=== PATIENT | male | born 1990 | race African-American/Black ===

== ENCOUNTER 2019-07-23 21:21 | Emergency (ER) | payer SELFPAY ==
[~2019-07-23] VITALS: Ht 175.3 cm; Wt 81.6 kg
[2019-07-23 21:45] VITALS: BP 160/109
--- NOTE | 2019-07-23 21:45 | NUR ---
ER Nurse Note: Pt walked in c/o mid abd pain with sudden onset. Pt states 8/10 pain, aching. Pt denies n/v. Bowel sounds heard in all quadrants. Pt denies trauma, ingesting abnormal food/drinks. Pt Urine provided. Will continue to montior.
--- NOTE | 2019-07-23 22:27 | Emergency Room Report ---
History of Present Illness General Chief Complaint: Abdominal Pain Source: Patient Present Illness HPI Patient is a 29-year-old male presents after increased epigastric pain. He reports having vague pain to the epigastric area which associated with increased discomfort. Patient patient states this is worse with supine position. He denies any recent alcohol intake. He denies being a smoker. Not been vomiting. He denies any nausea. He denies any diarrhea. He denies prior history of similar symptoms in the past. Allergies: Coded Allergies: No Known Allergies (Unverified , 07/23/19) Patient History Reviewed Nursing Documentation: PMH: Agreed; PSxH: Agreed Nursing Documentation-PM Past Medical History: No Stated History Review of Systems All Other Systems: negative except mentioned in HPI Physical Exam Vital Signs Date Time Temp Pulse Resp B/P (MAP) Pulse Ox O2 Delivery O2 Flow Rate FiO2 07/23/19 21:37 98.4 88 18 160/109 (126) 98 Room Air Sp02 EP Interpretation: reviewed, normal General Appearance: normal inspection, well appearing, no apparent distress, alert, GCS 15 Head: atraumatic ENT: normal ENT inspection, hearing grossly normal, normal voice Neck: normal inspection, full range of motion, supple, no bony tend Respiratory: normal inspection, lungs clear, normal breath sounds, no respiratory distress, no retraction, no wheezing Cardiovascular #1: regular rate, rhythm, no edema Gastrointestinal: normal inspection, normal bowel sounds, non tender, soft, no guarding, no hernia Genitourinary: no CVA tenderness Musculoskeletal: normal inspection, back normal, normal range of motion Neurologic: normal inspection, alert, oriented x3, responsive, fur repairer III-XII nml as tested, speech normal Psychiatric: normal inspection, judgement/insight normal, mood/affect normal Medical Decision Making Diagnostic Impression: Primary Impression: Nonspecific abdominal pain ER Course Patient presented for abdominal pain. Differential diagnoses included ischemic bowel, appendicitis, perforated viscus, abdominal aortic aneurysm, inferior myocardial infarction, viral gastroenteritis among others. Because of complexity of patient's case laboratory tests and imaging studies were ordered. Patient presented for epigastric pain. He was noted to have minimal if any tenderness to his abdomen. Abdominal ultrasound read by radiology showed no evidence of acute gallbladder or renal pathology. Patient does not appear to have any evidence of systemic toxicity and has a benign exam. Patient was given medications for symptomatic management of abdominal pain. He was advised to follow-up with his primary care physician for recheck. Patient was to return if he had worsening pain persistent vomiting or other concerns. Patient appears to be stable for outpatient evaluation. Labs Test 07/23/19 21:45 07/23/19 22:45 Urine Color Pale yellow Urine Appearance Clear Urine pH 7 (4.5-8.0) Urine Specific [place] 1.015 (1.005-1.035) Urine Protein Negative (NEGATIVE) Urine Glucose (UA) Negative (NEGATIVE) Urine Ketones Negative (NEGATIVE) Urine Blood Negative (NEGATIVE) Urine Nitrite Negative (NEGATIVE) Urine Bilirubin Negative (NEGATIVE) Urine Urobilinogen Normal MG/DL (0.0-1.0) Urine Leukocyte Esterase Negative (NEGATIVE) White Blood Count 7.1 K/UL (4.8-10.8) Red Blood Count 5.11 M/UL (4.70-6.10) Hemoglobin 15.2 G/DL (14.2-18.0) Hematocrit 42.8 % (42.0-52.0) Mean Corpuscular Volume 84 FL (80-99) Mean Corpuscular Hemoglobin 29.8 PG (27.0-31.0) Mean Corpuscular Hemoglobin Concent 35.6 G/DL (32.0-36.0) Red Cell Distribution Width 11.2 % (11.6-14.8) Platelet Count 204 K/UL (150-450) Mean Platelet Volume 5.7 FL (6.5-10.1) Neutrophils (%) (Auto) 66.4 % (45.0-75.0) Lymphocytes (%) (Auto) 24.1 % (20.0-45.0) Monocytes (%) (Auto) 7.2 % (1.0-10.0) Eosinophils (%) (Auto) 0.3 % (0.0-3.0) Basophils (%) (Auto) 2.0 % (0.0-2.0) Sodium Level 142 MMOL/L (136-145) Potassium Level 4.0 MMOL/L (3.5-5.1) Chloride Level 106 MMOL/L (98-107) Carbon Dioxide Level 27 MMOL/L (21-32) Anion Gap 9 mmol/L (5-15) Blood Urea Nitrogen 8 mg/dL (7-18) Creatinine 1.2 MG/DL (0.55-1.30) Estimat Glomerular Filtration Rate > 60 mL/min (>60) Glucose Level 94 MG/DL (74-106) Calcium Level 9.3 MG/DL (8.5-10.1) Total Bilirubin 0.4 MG/DL (0.2-1.0) Aspartate Amino Transf (AST/SGOT) 14 U/L (15-37) Alanine Aminotransferase (ALT/SGPT) 26 U/L (12-78) Alkaline Phosphatase 76 U/L (46-116) Total Protein 7.8 G/DL (6.4-8.2) Albumin 3.7 G/DL (3.4-5.0) Globulin 4.1 g/dL Albumin/Globulin Ratio 0.9 (1.0-2.7) Lipase 76 U/L (73-393) Last Vital Signs Date Time Temp Pulse Resp B/P (MAP) Pulse Ox O2 Delivery O2 Flow Rate FiO2 07/23/19 21:45 98.4 76 18 160/109 98 Room Air Status: improved Disposition: HOME, SELF-CARE Condition: Stable Scripts Dicyclomine Hcl* (DICYCLOMINE HCL*) 10 Mg Capsule 10 MG ORAL QID, #20 CAP Prov: Noam Rutherford MD 07/23/19 Omeprazole (OMEPRAZOLE) 20 Mg Capsule. 20 MG ORAL DAILY, #30 CAP Prov: Noam Rutherford MD 07/23/19 Noam Rutherford MD Jul 23, 2019 22:27
[2019-07-23] MEDS ORDERED: Dicyclomine HCl 10mg/5ml oral soln ORAL ONE (22:30)
--- NOTE | 2019-07-23 22:45 | NUR ---
ED Nurse Note: Received pt from Jaymie REEDER. Pt vss, jamee x4, no acute distress.
[2019-07-23 22:47] LABS: APPEARANCE,URINE CLEAR; BILIRUBIN, URINE NEGATIVE (NEGATIVE); COLOR,URINE PALE YELLOW; GLUCOSE, URINE (UA) NEGATIVE (NEGATIVE); KETONES,URINE NEGATIVE (NEGATIVE); LEUKOCYTE ESTERASE ,URINE NEGATIVE (NEGATIVE); NITRITE,URINE NEGATIVE (NEGATIVE); PH,URINE 7 (4.5-8.0); PROTEIN,URINE NEGATIVE (NEGATIVE); UROBILINOGEN,URINE NORMAL MG/DL (0.0-1.0)
[2019-07-23 22:53] LABS: EOSINOPHILS % (AUTO) 0.3 % (0.0-3.0); HEMATOCRIT 42.8 % (42.0-52.0); HEMOGLOBIN 15.2 G/DL (14.2-18.0); LYMPHOCYTES % (AUTO) 24.1 % (20.0-45.0); MEAN CORPUSCULAR VOLUME 84 FL (80-99); MONOCYTES % (AUTO) 7.2 % (1.0-10.0); NEUTROPHILS % (AUTO) 66.4 % (45.0-75.0); PLATELET COUNT 204 K/UL (150-450); RED BLOOD COUNT 5.11 M/UL (4.70-6.10); RED CELL DISTRIBUTION WIDTH 11.2 % (11.6-14.8); WHITE BLOOD COUNT 7.1 K/UL (4.8-10.8)
--- NOTE | 2019-07-23 22:53 | NUR ---
ER Nurse Note: Report given to LILLI Barnett for continuity of care. SLIV RT AC 20 gauge established. Labs sent. Pt stable.
[2019-07-23 23:04] LABS: ANION GAP 9 mmol/L (5-15); BLOOD UREA NITROGEN 8 mg/dL (7-18); CALCIUM 9.3 MG/DL (8.5-10.1); CARBON DIOXIDE 27 MMOL/L (21-32); CHLORIDE 106 MMOL/L (98-107); CREATININE 1.2 MG/DL (0.55-1.30); SODIUM 142 MMOL/L (136-145)
[2019-07-23 23:08] LABS: ALANINE AMINOTRANSFERASE 26 U/L (12-78); ALBUMIN 3.7 G/DL (3.4-5.0); ALBUMIN/GLOBULIN RATIO 0.9 (1.0-2.7); ALKALINE PHOSPHATASE 76 U/L (46-116); ASPARTATE AMINO TRANSFERASE 14 U/L (15-37); BILIRUBIN,TOTAL 0.4 MG/DL (0.2-1.0)
--- NOTE | 2019-07-23 23:28 | NUR ---
ED Nurse Note: US ABD done
--- NOTE | 2019-07-23 23:46 | Diagnostic Imaging Report ---
Indication: Abdominal pain Technique: Grayscale and duplex Doppler imaging of the abdomen performed. Comparison: None Findings: The liver is unremarkable. Doppler interrogation of the main portal vein shows patency with hepatopedal, monophasic flow. There is no biliary ductal dilatation identified. Gallbladder is unremarkable. There demonstrated part of the pancreas, aorta and IVC show no definite abnormalities. Both kidneys appear unremarkable. There is no hydronephrosis. IMPRESSION: No acute findings identified.
[2019-07-23] MEDS ORDERED: OMEPRAZOLE20 M2 ORAL (23:49)
[2019-07-23] MEDS ORDERED: DICYCLOMINE HCL10 MG ORAL (23:49)
[2019-07-24 00:05] VITALS: BP 154/94
--- NOTE | 2019-07-24 00:05 | NUR ---
ER Nurse Note: Pt seen, treated, medically cleared for discharge by ERMD. Discharge instuctions and prescriptions given with repeat verbalization by pt. Emphasized to follow up with primay care provider; take whole course of medication. Explained each medication. All orders completed per ERMD orders. Pt a&ox4, VSS, no signs of distress. ID band removed. IV removed; site clean and bandaged. All questions answered per pt's questions. Pt left with all belongings, left with own transportation.
== END 2019-07-24 00:05 | disposition home or self-care (01) ==
LOC: EMR 23:00
DX: R10.13 Epigastric pain (principal)
CPT/HCPCS: 36415; 76700; 80053; 81003; 83690; 85025; 96374; 96375; 99284; J2405; S0028

== ENCOUNTER 2019-07-28 14:01 | Emergency (ER) | payer SELFPAY ==
[~2019-07-28] VITALS: Ht 175.3 cm; Wt 81.6 kg
[~2019-07-28 14:01] MED LIST: DICYCLOMINE HCL10 MG ORAL; OMEPRAZOLE20 M2 ORAL
[2019-07-28] MEDS ORDERED: NKM (14:22)
--- NOTE | 2019-07-28 14:32 | NUR ---
ED Nurse Note: PT WALKED IN TO ER TODAY FROM HOME. AOX4. PT STATES HE WANTS TO GET CHECKED FOR STD'S DUE TO POSSIBLE EXPOSURE X 1 WEEK AGO. PT STATES HE IS ASYMPTOMATIC BUT WANTS TO BE CHECKED TO BE SURE HE DID NOT CONTRACT ANYTHING.
[2019-07-28 14:33] VITALS: BP 132/76
--- NOTE | 2019-07-28 14:52 | Emergency Room Report ---
History of Present Illness General Chief Complaint: Male Urogenital Problems Source: Patient Present Illness HPI 29 YO male presents to the ED c/o of exposure to venereal disease. He endorses having unprotected intercourse 5 days ago with a partner who had to get treated for G & C. Pt. denies penile d/c, dysuria, rashes, lesions, testicular pain or swelling. Pt. denies swollen tender lymph nodes. He denies abdominal pain, fevers, or chills. Allergies: Coded Allergies: No Known Allergies (Unverified , 07/23/19) Patient History Past Medical History: see triage record Past Surgical History: none Pertinent Family History: none Immunizations: UTD Reviewed Nursing Documentation: PMH: Agreed; PSxH: Agreed Nursing Documentation-PMH Past Medical History: No Stated History Review of Systems All Other Systems: negative except mentioned in HPI Physical Exam Vital Signs Date Time Temp Pulse Resp B/P (MAP) Pulse Ox O2 Delivery O2 Flow Rate FiO2 07/28/19 14:19 98.2 72 20 143/79 (100) 98 Room Air Sp02 EP Interpretation: reviewed, normal General Appearance: no apparent distress, alert, GCS 15, non-toxic Head: normocephalic, atraumatic Eyes: bilateral eye normal inspection, bilateral eye PERRL ENT: hearing grossly normal, normal voice Neck: full range of motion Respiratory: lungs clear, normal breath sounds, speaking full sentences Cardiovascular #1: regular rate, rhythm Gastrointestinal: normal bowel sounds, non tender, soft Rectal: deferred Genitourinary: normal inspection, no CVA tenderness, deferred - genital exam deferred Musculoskeletal: gait/station normal, normal range of motion, non-tender Neurologic: alert, oriented x3, responsive, motor strength/tone normal, sensory intact, speech normal, grossly normal Psychiatric: judgement/insight normal Skin: no rash, normal color Lymphatic: no adenopathy Medical Decision Making PA Attestation Dr. Rae is my supervising Physician whom patient management has been discussed with. Diagnostic Impression: Primary Impression: Contact with or exposure to venereal diseases ER Course 29 YO male presents to the ED c/o of exposure to venereal disease. He endorses having unprotected intercourse 5 days ago with a partner who had to get treated for G & C. Pt. denies penile d/c, dysuria, rashes, lesions, testicular pain or swelling. Pt. denies swollen tender lymph nodes. He denies abdominal pain, fevers, or chills. Ddx considered but are not limited to UTi , Urethritis, LGV, STI, Stone, Cystitis, prostatitis Pt. declined genital exam due to being asymptomatic. Vital signs: are WNL, pt. is afebrile H&PE are most consistent with: Exposure to venereal disease. ORDERS: - none required at this time, the dx is clinical. ED INTERVENTIONS: -250mg Rocephin IM -Azithromycin 1g PO DISCHARGE: At this time pt. is stable for d/c to home. Will provide printed patient care instructions, and any necessary prescriptions. Care plan and follow up instructions have been discussed with the patient prior to discharge. Last Vital Signs Date Time Temp Pulse Resp B/P (MAP) Pulse Ox O2 Delivery O2 Flow Rate FiO2 07/28/19 14:33 98.4 68 18 132/76 100 Room Air Disposition: HOME, SELF-CARE Condition: Stable Patient Instructions: Chlamydia Test, Gonorrhea Testing Additional Instructions: Take any previously prescribed medications as directed. Follow up with a Primary Care Provider in 3-5 days, even if your symptoms have resolved. --Please review list of primary care clinics, if you do not already have a primary care provider Return sooner to ED if new symptoms occur, or current symptoms become worse. - Please note that this Emergency Department Report was dictated using [employer] director of creative strategy technology software, occasionally this can lead to erroneous entry secondary to interpretation by the dictation equipment. Angelita Mcclain Jul 28, 2019 14:52
[2019-07-28] MEDS ORDERED: Lidocaine 1% MPF 10mg/ml 5ml INJ ONE (15:00)
[2019-07-28] MEDS ORDERED: Azithromycin 250mg tab ORAL ONE (15:00)
--- NOTE | 2019-07-28 15:05 | NUR ---
ED Nurse Note: PT SITTING PEACEFULLY IN BED IN NAD. AOX4. DISCHARGE PAPERWORK EXPLAINED TO PT. PT VERBALIZES UNDERSTANDING AND ALL QUESTIONS ANSWERED. DISCHARGE PAPERWORK GIVEN TO PT AND ID IVA SPEAR. PT WALKED OUT OF ER WITH STEADY GAIT AND ALL BELONGINGS.
== END 2019-07-28 15:06 | disposition home or self-care (01) ==
LOC: EMR 14:56
DX: Z20.2 Contact with and (suspected) exposure to infections with a predominantly sexual mode of transmission (principal)
CPT/HCPCS: 96372; 96374; 99284; J0696